=== PATIENT | female | born 1940 | race Two or more races ===

== ENCOUNTER 2017-07-06 10:40 | Emergency (ER) | payer OTHER ==
[2017-07-06] MEDS ORDERED: METOCLOPRAMIDE HCL INJECTION 10 MG/2 ML VIAL IVPB ONE (11:04)
[2017-07-06] MEDS ORDERED: SODIUM CHLORIDE 0.9% 1000 ML INFUS.BAG IV ONE (11:04)
[2017-07-06 11:07] VITALS: BP 121/67; PULSE 92; TEMP 97.7; BMI 20.5
--- NOTE | 2017-07-06 11:45 | PDOC ---
History of Present Illness <Oralia Lizarraga - Last Filed: 07/06/17 14:08> - General History Source: Patient Exam Limitations: No Limitations - History of Present Illness Initial Comments: 07/06/17 11:44 77 yo F with h/o cleft palate ( unrepaired ) her today c/o persistant headache, and electrice like facial pain. pt states was seen in emergency room earlier this year for same few months ago. was evaluted wt ct head. also has seen nuerologist dr. Tay, and had oupt mri. 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 she was treated for migraines <Radha Santoyo - Last Filed: 07/06/17 14:17> - General Chief Complaint: Headache Stated Complaint: HEADACHE Time Seen by Provider: 07/06/17 10:51 Past History <Oralia Lizarraga - Last Filed: 07/06/17 14:08> - Past Medical History Diabetes: Yes HTN: Yes Hypercholesterolemia: Yes Other medical history: SINUSITIS, CLEFT PALATE, CHIARI MALFORMATION - Psycho/Social/Smoking Cessation Hx Suicidal Ideation: No Smoking History: Never smoked Information on smoking cessation initiated: No Hx Alcohol Use: No Drug/Substance Use Hx: No <Radha Santoyo - Last Filed: 07/06/17 14:17> - Past Medical History Allergies/Adverse Reactions: Allergies Allergy/AdvReac Type Severity Reaction Status Date / Time No Known Allergies Allergy Verified 07/06/17 10:43 Home Medications: Ambulatory Orders Protriptyline HCl 10 mg PO DAILY 01/02/16 Rosuvastatin [Crestor -] 40 mg PO DAILY 01/02/16 Linagliptin/Metformin HCl [Jentadueto 2.5 mg-1000 mg Tab] 1 each PO DAILY Lisinopril [Zestril] 2.5 mg PO DAILY 07/06/17 *Physical Exam - Vital Signs Last Vital Signs Temp Pulse Resp BP Pulse Ox 97.7 F 92 H 18 121/67 96 07/06/17 10:40 07/06/17 10:40 07/06/17 10:40 07/06/17 10:40 07/06/17 10:40 <Oralia Lizarraga - Last Filed: 07/06/17 14:08> - Vital Signs Last Vital Signs Temp Pulse Resp BP Pulse Ox 97.7 F 92 H 18 121/67 96 07/06/17 10:40 07/06/17 10:40 07/06/17 10:40 07/06/17 10:40 07/06/17 10:40 <Radha Santoyo - Last Filed: 07/06/17 14:17> ED Treatment Course - LABORATORY CBC & Chemistry Diagram: 07/06/17 11:15 07/06/17 11:15 - ADDITIONAL ORDERS Additional order review: Laboratory Results 07/06/17 11:15 Sodium 134 L Potassium 3.8 Chloride 99 Carbon Dioxide 26 Anion Gap 9 BUN 12 Creatinine 0.8 Creat Clearance w eGFR > 60 Random Glucose 142 H Calcium 10.2 Total Bilirubin 0.8 AST 22 ALT 14 Alkaline Phosphatase 66 Total Protein 7.9 Albumin 4.4 07/06/17 11:15 RBC 4.71 MCV 85.5 MCHC 32.9 RDW 12.4 MPV 9.5 Neutrophils % 62.5 Lymphocytes % 25.0 Monocytes % 9.1 Eosinophils % 0.7 Basophils % 2.7 H - Medications Given in the ED: ED Medications Discontinued Medications Generic Name Dose Route Start Last Admin Trade Name Freq PRN Reason Stop Dose Admin Metoclopramide HCl 10 mg 07/06/17 11:04 07/06/17 11:20 Reglan Injection - IVPB 07/06/17 11:05 10 mg ONCE ONE Administration Sodium Chloride 1,000 ml 07/06/17 11:04 07/06/17 11:20 Normal Saline - IV 07/06/17 11:05 1,000 ml ONCE ONE Administration <Oralia Lizarraga - Last Filed: 07/06/17 14:08> - LABORATORY CBC & Chemistry Diagram: 07/06/17 11:15 07/06/17 11:15 - Medications Given in the ED: ED Medications Discontinued Medications Generic Name Dose Route Start Last Admin Trade Name Freq PRN Reason Stop Dose Admin Metoclopramide HCl 10 mg 07/06/17 11:04 07/06/17 11:20 Reglan Injection - IVPB 07/06/17 11:05 10 mg ONCE ONE Administration Sodium Chloride 1,000 ml 07/06/17 11:04 07/06/17 11:20 Normal Saline - IV 07/06/17 11:05 1,000 ml ONCE ONE Administration <Radha Santoyo - Last Filed: 07/06/17 14:17> Medical Decision Making - Medical Decision Making 07/06/17 14:08 Dr. Tay was called at the office at this time to discuss patient medication. <Oralia Lizarraga - Last Filed: 07/06/17 14:08> - Medical Decision Making 07/06/17 13:34 d/w pt regarding finding of her MRI regarding Chiari I. pt is having sxs of headache and dizziness. however d/w Dr Tay, believes pt sxs are more related to migraines as opposed to CHiari I as they are fluctuating and present mostly when she has migraines, , and improved over the years while taking her migraine medications. pt is not currently taking her medications as she ran out , did not realize she had refills. she has followup scheduled with DR Tay 08/12 12:30 pm. pt given copy of her labs results. and MRI results. <Radha Santoyo - Last Filed: 07/06/17 14:17> *DC/Admit/Observation/Transfer <Oralia Lizarraga - Last Filed: 07/06/17 14:08> <Radha Santoyo - Last Filed: 07/06/17 14:17> Diagnosis at time of Disposition: Headache, Trigeminal neuralgia of right side of face - Discharge Dispostion Disposition: HOME Condition at time of disposition: Stable - Referrals Referrals: Andres Tay MD [Staff Physician] - - Patient Instructions Printed Discharge Instructions: Migraine -- Adult, Trigeminal Neuralgia, DI for Trigeminal Neuralgia Additional Instructions: you are to follow up with Dr Tay as scheduled for August 12 at 12:30. you can call to move appointment should you so choose. you should resume your prescribed medications for your migraines. DR Tay has reassured that you have refills in the pharmacy. return for any worsening symptoms or concerns. you should continue taking Nadalol 40mg daily, which dr tay will send to the pharmacy. and protryptilline 10 mg each evening.
[2017-07-06 11:49] LABS: BASOPHIL 2.7 % (0-2.0); EOSINOPHIL 0.7 % (0-4.5); MCH 28.1 pg (25.7-33.7); MCHC 32.9 g/dl (32.0-36.0); MEAN CELL VOLUME 85.5 fl (80-96); MEAN PLT VOLUME 9.5 fl (7.5-11.1); NEUTROPHILS 62.5 % (42.8-82.8); PLATELET COUNT 266 K/MM3 (134-434); RDW 12.4 % (11.6-15.6)
[2017-07-06 11:54] LABS: ALBUMIN 4.4 g/dl (3.5-5.0); ALK PHOS 66 U/L (32-92); ANION GAP 9 (8-16); BILIRUBIN,TOTAL 0.8 mg/dl (0.2-1.0); CALCIUM 10.2 mg/dl (8.4-10.2); CO2 26 mmol/L (22-28); CREATININE 0.8 mg/dl (0.6-1.3); GLUCOSE,RANDOM 142 mg/dl (74-106); SGOT/AST 22 U/L (10-42); SGPT/ALT 14 U/L (10-40); TOT PROT 7.9 g/dl (6.4-8.3)
== END 2017-07-06 14:40 | disposition home or self-care (01) ==
LOC: FER 10:40
PROC: 3E033GC Introduction of Other Therapeutic Substance into Peripheral Vein, Percutaneous Approach (ICD-10-PCS; principal; 2017-07-06)
PROC: 3E0337Z Introduction of Electrolytic and Water Balance Substance into Peripheral Vein, Percutaneous Approach (ICD-10-PCS; 2017-07-06)
DX: G50.0 Trigeminal neuralgia (principal)
CPT/HCPCS: 36415; 80053; 85025; 96374; 99283-25

== ENCOUNTER 2017-10-06 09:45 | Day surgery (SDC) | payer OTHER ==
[2017-10-05 20:35] VITALS: BMI 19.6
[~2017-10-06 09:45] MED LIST: ACETAMINOPHEN 325 MG TABLET (FP) PO PRN; CIPROFLOXACIN HCL 0.3% OPHTH 2.5ML BOTTLE OP SCH; CYCLOPENTOLATE HCL 1% OPHTH SOLN 2 ML BOTTLE OP SCH; FLURBIPROFEN 0.03% OPHTH SOLN 2.5 ML BOTTLE OP SCH; PHENYLEPHRINE 2.5% OPHTH SOLN 15 ML BOTTLE OP SCH; TROPICAMIDE 1% OPHTH SOLN 15 ML BOTTLE OP SCH; VANCOMYCIN 500 MG VIAL (RESTRICTED TO ID ONLY) IVPB ONE
[2017-10-06] MEDS ORDERED: CYCLOPENTOLATE HCL 1% OPHTH SOLN 2 ML BOTTLE ONE (10:08)
[2017-10-06] MEDS ORDERED: CIPROFLOXACIN 0.3% EYE DROPS 5 ML BOTTLE ONE (10:08)
[2017-10-06] MEDS ORDERED: PHENYLEPHRINE 2.5% OPHTH SOLN 15 ML BOTTLE ONE (10:08)
[2017-10-06] MEDS ORDERED: FLURBIPROFEN 0.03% OPHTH SOLN 2.5 ML BOTTLE ONE (10:08)
[2017-10-06 10:36] VITALS: TEMP 97.5
[2017-10-06] MEDS ORDERED: TROPICAMIDE 1% OPHTH SOLN 15 ML BOTTLE ONE (11:25)
[2017-10-06] MEDS ORDERED: BUPIVACAINE HCL/PF 0.75% 10 ML VIAL RB ONE (13:12)
[2017-10-06] MEDS ORDERED: LIDOCAINE HCL/PF 2% SDV 5ML VIAL INF ONE (13:12)
[2017-10-06] MEDS ORDERED: POVIDONE-IODINE 5% OPHTHALMIC PREP 30 ML SOLUTION OS ONE (13:14)
[2017-10-06] MEDS ORDERED: LIDOCAINE HCL 1% PRESERVATIVE FREE - 30ML VIAL IO ONE (13:22)
[2017-10-06] MEDS ORDERED: CHONDROITIN SU A/HYALUR SOD 1 KIT IO ONE (13:26)
[2017-10-06] MEDS ORDERED: EPINEPHrine/PF 1 MG/1 ML (1:1,000) AMPULE IO ONE (13:29)
[2017-10-06 15:11] VITALS: BP 119/71; PULSE 67
--- NOTE | 2017-10-07 12:01 | SPEC ---
DATE OF OPERATION: 10/06/2017 PREOPERATIVE DIAGNOSIS: Cataract, left eye. POSTOPERATIVE DIAGNOSIS: Cataract, left eye. PROCEDURE: Phacoemulsification of left cataract with posterior chamber intraocular lens implantation. The lens used was [id number], 23.0 diopter power, serial number [id number]. SURGEON: Joe Banks MD ANESTHESIA: Peribulbar/modified van Lint/MAC. COMPLICATIONS: None. PROCEDURE: The patient was brought to the operating room and correctly identified along with the operative site and a correct intraocular lens maddox. The patient was then given a peribulbar block under sedation with 5 mL of a 1:1 mixture of 2% Lidocaine and 0.5% Bupivacaine. Two to 3 mL of the same mixture was given as a modified Van Lint block. The eye was then prepped and draped in the usual sterile fashion including 5% Betadine solution in the conjunctival sac and an eyelid drape. An eyelid speculum was then placed into the eye. A paracentesis port was created. Viscoelastic was injected to inflate the anterior chamber. A temporal clear corneal wound was created. A continuous circular capsulorrhexis was performed. The nucleus was then hydro-dissected and removed phacoemulsification via the [id number] approach. The remaining cortical material was irrigated and aspirated from the eye. Viscoelastic was injected to inflate the capsular bag. The lens was injected into the capsular bag. Viscoelastic was then irrigated and aspirated from the eye. The intraocular lens was noted to be well centered and covered by the anterior capsular border. All wounds were found to be watertight. Topical Vancomycin was given. The eye patch and shield were placed. The patient was discharged from the operating room in stable condition. JOE BANKS M.D. [id number]
== END 2017-10-06 15:12 | disposition home or self-care (01) ==
LOC: JASU-SURG 09:45
PROVIDERS: ATTEND Ophthalmology
PROC: 08RK3JZ Replacement of Left Lens with Synthetic Substitute, Percutaneous Approach (ICD-10-PCS; principal; 2017-10-06 12:00)
DX: H26.9 Unspecified cataract (principal)

== ENCOUNTER 2019-02-01 09:23 | Day surgery (SDC) | payer OTHER ==
[2019-01-31 15:52] VITALS: BMI 21.1
[~2019-02-01 09:23] MED LIST changes: -CIPROFLOXACIN HCL 0.3% OPHTH 2.5ML BOTTLE OP SCH; -FLURBIPROFEN 0.03% OPHTH SOLN 2.5 ML BOTTLE OP SCH; +KETOROLAC TROMETHAMINE 0.5% EYE DROP 1 DROP DROPS OP SCH; +OFLOXACIN 0.3% OPHTHALMIC SOLUTION 5 ML BOTTLE OP SCH; -VANCOMYCIN 500 MG VIAL (RESTRICTED TO ID ONLY) IVPB ONE
[2019-02-01] MEDS ORDERED: OFLOXACIN 0.3% OPHTHALMIC SOLUTION 5 ML BOTTLE ONE (09:37)
[2019-02-01] MEDS ORDERED: PHENYLEPHRINE 2.5% OPHTH SOLN 15 ML BOTTLE ONE (09:37)
[2019-02-01] MEDS ORDERED: CYCLOPENTOLATE HCL 1% OPHTH SOLN 2 ML BOTTLE ONE (09:37)
[2019-02-01] MEDS ORDERED: TROPICAMIDE 1% OPHTH SOLN 15 ML BOTTLE ONE (09:38)
[2019-02-01] MEDS ORDERED: KETOROLAC TROMETHAMINE 0.5% EYE DROP 1 DROP DROPS ONE (09:38)
[2019-02-01 10:00] VITALS: TEMP 97.7
[2019-02-01] MEDS ORDERED: PROPOFOL 20 ML ONE (10:47)
[2019-02-01] MEDS ORDERED: BUPIVACAINE HCL/PF 0.75% 10 ML VIAL NR ONE (10:57)
[2019-02-01] MEDS ORDERED: LIDOCAINE HCL/PF 2% SDV 5ML VIAL INF ONE (10:57)
[2019-02-01] MEDS ORDERED: POVIDONE-IODINE 5% OPHTHALMIC PREP 30 ML SOLUTION OD ONE (11:01)
[2019-02-01] MEDS ORDERED: CHONDROITIN SU A/HYALUR SOD 1 KIT IO ONE (11:07)
[2019-02-01] MEDS ORDERED: LIDOCAINE HCL 1% PRESERVATIVE FREE - 30ML VIAL IO ONE (11:07)
[2019-02-01] MEDS ORDERED: BSS (NA/CA/MG/K) BALANCED SALT SOLUTION OPHTH SOLN 15 ML BOTTLE OD ONE (11:07)
[2019-02-01] MEDS ORDERED: EPINEPHrine/PF 1 MG/1 ML (1:1,000) AMPULE SQ ONE (11:12)
[2019-02-01 12:05] VITALS: PULSE 65
--- NOTE | 2019-02-01 12:07 | OP ---
DATE OF OPERATION: 02/01/2019 SURGEON: Joe Banks M.D. PREOPERATIVE DIAGNOSIS: Cataract, right eye. POSTOPERATIVE DIAGNOSIS: Cataract, right eye. OPERATION: Phacoemulsification of right cataract with posterior chamber intraocular lens implantation. The lens used [id number], 22.5 diopter power, serial No. [id number]. ANESTHESIA: Peribulbar/Modified Van Lint/MAC. COMPLICATIONS: None. PROCEDURE: The patient was brought into the operating room and correctly identified along with the operative site as well as correct intraocular lens maddox. She was then given a peribulbar block under sedation with 5 mL of a 1:1 mixture of 2% Lidocaine and 0.75% Bupivacaine. One mL of the same mixture was given as a modified Van Lint eyelid block. The patient was then prepped and draped in the usual sterile fashion including 5% Betadine solution in the conjunctival sac and an eyelid drape. An eyelid speculum was then placed into the right eye. A paracentesis port was created, and 0.5 mL of 1% preservative-free Lidocaine was given intracamerally. Viscoelastic was injected to inflate the anterior chamber, and a temporal clear corneal wound was created. A continuous circular capsulorrhexis was performed, and the nucleus was then hydro-dissected with BSS. Phacoemulsification was performed with the cataract, and the cataract was noted to be dense. As the cataract was being removed in the quadrant mode, care was made to irrigate the clear corneal wound with BSS. However, at the end of the last quadrant removal, a small corneal burn was noted in the roof of the corneal wound. Viscoelastic was injected to inflate the capsular bag. The lens was injected into the capsular bag. The wounds were then stromal hydrated and irrigation aspiration of the viscoelastic was then performed. At the end, BSS was used to inflate the anterior chamber, and the anterior chamber was noted to be stable, however, with minimal pressure on the temporal clear corneal wound, egress of BSS was noted. Decision was then made to place a single 10-0 nylon suture. After this was placed, no leakage was noted with any pressure. The intraocular lens was noted to be well centered and covered by the anterior capsular border. No further suture was placed. Topical vancomycin and Betadine given, and the patients eye was patched and shielded, and patient was discharged from the operating room in stable condition. JOE BANKS M.D. [id number]
[2019-02-01 13:13] VITALS: BP 130/60
== END 2019-02-01 12:25 | disposition home or self-care (01) ==
LOC: JASU-SURG 09:23
PROVIDERS: ATTEND Ophthalmology
PROC: 08RJ3JZ Replacement of Right Lens with Synthetic Substitute, Percutaneous Approach (ICD-10-PCS; principal; 2019-02-01 11:00)
DX: H26.9 Unspecified cataract (principal)
CPT/HCPCS: 82962

== ENCOUNTER 2020-12-04 04:41 | Day surgery (SDC) | payer OTHER ==
[2020-12-03 09:59] VITALS: BMI 22.4
[2020-12-04] MEDS ORDERED: BUPIVACAINE HCL/PF 0.75% 10 ML VIAL ONE (08:43)
[2020-12-04] MEDS ORDERED: IOHEXOL 180 MG/1 ML ML IJ ONE (08:55)
[2020-12-04] MEDS ORDERED: LIDOCAINE HCL 1%, 10 MG/ML (20ML VIAL) PNB ONE (08:55)
[2020-12-04] MEDS ORDERED: BUPIVACAINE HCL/PF 0.75% 10 ML VIAL PNB ONE (08:55)
[2020-12-04 09:18] VITALS: BP 117/72; PULSE 86; TEMP 98.1
== END 2020-12-04 10:51 | disposition home or self-care (01) ==
LOC: JASU-SURG 04:41
PROVIDERS: ATTEND Pain Medicine Pain Medicine
PROC: 3E0R3BZ Introduction of Anesthetic Agent into Spinal Canal, Percutaneous Approach (ICD-10-PCS; 2020-12-04)
PROC: 3E0R33Z Introduction of Anti-inflammatory into Spinal Canal, Percutaneous Approach (ICD-10-PCS; principal; 2020-12-04 08:30)
DX: M47.816 Spondylosis without myelopathy or radiculopathy, lumbar region (principal)
CPT/HCPCS: 76000-TC-FY

== ENCOUNTER 2020-12-20 04:23 | Day surgery (SDC) | payer OTHER ==
[2020-12-18 09:13] VITALS: BMI 22.4
[2020-12-20] MEDS ORDERED: LIDOCAINE 1% P/F 10 MG/ML VIAL INF ONE ×2 (12:24)
[2020-12-20] MEDS ORDERED: IOHEXOL 180 MG/1 ML ML IJ ONE ×2 (12:24)
[2020-12-20] MEDS ORDERED: BUPIVACAINE HCL/PF 0.75% 10 ML VIAL CAUD ONE (12:24)
[2020-12-20 13:41] VITALS: BP 134/72; PULSE 74; TEMP 97.9
== END 2020-12-20 13:35 | disposition home or self-care (01) ==
LOC: JASU-SURG 04:23
PROVIDERS: ATTEND Pain Medicine Pain Medicine
PROC: BR16YZZ Fluoroscopy of Lumbar Facet Joint(s) using Other Contrast (ICD-10-PCS; 2020-12-20)
PROC: 3E0T3BZ Introduction of Anesthetic Agent into Peripheral Nerves and Plexi, Percutaneous Approach (ICD-10-PCS; principal; 2020-12-20 11:00)
DX: M47.816 Spondylosis without myelopathy or radiculopathy, lumbar region (principal)
CPT/HCPCS: 76000-TC-FY

== ENCOUNTER 2021-07-09 10:54 | Observation (INO) | payer OTHER ==
[2021-07-09 11:05] VITALS: BMI 21.7
[2021-07-09] MEDS ORDERED: ASPIRIN 325 MG ENTERIC COATED TABLET (FP) PO ONE (12:09)
[2021-07-09] MEDS ORDERED: ASPIRIN 81 MG CHEWABLE TABLETS ONE (12:21)
[2021-07-09 12:44] LABS: BASO % 0.4 % (0-2.0); EOS % 0.3 % (0-4.5); HEMATOCRIT 40.1 % (32.4-45.2); HEMOGLOBIN 13.4 GM/dL (10.7-15.3); LYMPH % 18.9 % (8-40); MCH 29.1 pg (25.7-33.7); MCHC 33.4 g/dl (32.0-36.0); MEAN CELL VOLUME 87.3 fl (80-96); MEAN PLT VOLUME 8.5 fl (7.5-11.1); MONO % 6.8 % (3.8-10.2); NEUT % 73.6 % (42.8-82.8); PLATELET COUNT 269 10^3/uL (134-434); RBC 4.59 M/mm3 (3.60-5.2); RDW 14.4 % (11.6-15.6); WHITE BLOOD COUNT 6.9 K/mm3 (4.0-10.0)
[2021-07-09 13:10] LABS: CHLORIDE 108 mmol/L (98-107); SODIUM 141 mmol/L (136-145)
[2021-07-09 13:12] LABS: CALCIUM 9.8 mg/dL (8.5-10.1)
[2021-07-09 13:13] LABS: ALBUMIN 3.9 g/dl (3.4-5.0); ANION GAP 6 MMOL/L (8-16); BLOOD UREA NITROGEN 17.4 mg/dL (7-18); CO2 27 mmol/L (21-32); GLUCOSE,RANDOM 124 mg/dL (74-106)
[2021-07-09 13:16] LABS: CREATININE 0.8 mg/dL (0.55-1.3); SGOT/AST 13 U/L (15-37); SGPT/ALT 17 U/L (13-61)
[2021-07-09 13:18] LABS: BILIRUBIN,TOTAL 0.5 mg/dL (0.2-1); TOT PROT 7.8 g/dl (6.4-8.2)
[2021-07-09 13:19] LABS: ALK PHOS 85 U/L (45-117)
[2021-07-09] MEDS ORDERED: NITROGLYCERIN SUBLINGUAL 1/150 0.4 MG TAB SL PRN (14:07)
[2021-07-09] MEDS ORDERED: ROSUVASTATIN CA 40 MG TABLET PO ONE (14:30)
[2021-07-09] MEDS ORDERED: ATORVASTATIN CA 40 MG TABLET (FP) ONE (15:46)
[2021-07-09 17:33] LABS: CHOLESTEROL 253 mg/dL (50-200); TRIGLYCERIDES 106 mg/dL (0-150)
[2021-07-09 17:34] LABS: LDL CHOLESTEROL (ONLY SJRH) 165 mg/dL (5-100)
[2021-07-09 17:35] LABS: HDL CHOLESTEROL 63 mg/dL (40-60)
[2021-07-09 17:37] LABS: N-TERMINAL BNP 46.7 pg/ml (5-450)
[2021-07-09] MEDS: INSULIN SLIDING SCALE (NOVOLOG) 1 VIAL SQ SCH (21:08)
[2021-07-10 06:29] LABS: BASO % 0.3 % (0-2.0); EOS % 1.6 % (0-4.5); HEMOGLOBIN 13.5 GM/dL (10.7-15.3); LYMPH % 32.6 % (8-40); MCH 29.1 pg (25.7-33.7); MEAN CELL VOLUME 88.2 fl (80-96); MEAN PLT VOLUME 9.1 fl (7.5-11.1); MONO % 9.9 % (3.8-10.2); NEUT % 55.6 % (42.8-82.8); PLATELET COUNT 258 10^3/uL (134-434); RBC 4.65 M/mm3 (3.60-5.2); RDW 14.5 % (11.6-15.6); WHITE BLOOD COUNT 5.8 K/mm3 (4.0-10.0)
[2021-07-10 06:43] LABS: CALCIUM 8.8 mg/dL (8.5-10.1)
[2021-07-10 06:44] LABS: ALBUMIN 3.8 g/dl (3.4-5.0); BLOOD UREA NITROGEN 12.5 mg/dL (7-18); MAGNESIUM 2.4 mg/dL (1.8-2.4)
[2021-07-10 06:47] LABS: CREATININE 0.8 mg/dL (0.55-1.3)
[2021-07-10 06:48] LABS: BILIRUBIN,TOTAL 0.8 mg/dL (0.2-1); TOT PROT 7.5 g/dl (6.4-8.2)
[2021-07-10] MEDS ORDERED: sitaGLIPtin PHOSPHATE 50 MG TABLET PO SCH (07:00)
[2021-07-10] MEDS ORDERED: ASPIRIN 81 MG CHEWABLE TABLETS PO SCH (10:00)
[2021-07-10] MEDS ORDERED: LISINOPRIL 10 MG TABLET PO SCH (10:00)
[2021-07-10] MEDS ORDERED: ASPIRIN 81 MG CHEWABLE TABLETS ONE (10:32)
[2021-07-10] MEDS ORDERED: LISINOPRIL 5 MG TABLET ONE (10:33)
[2021-07-10] MEDS ORDERED: sitaGLIPtin PHOSPHATE 50 MG TABLET ONE (10:33)
[2021-07-10] MEDS: INSULIN SLIDING SCALE (NOVOLOG) 1 VIAL SQ SCH ×2 (11:11→11:48)
[2021-07-10 14:09] VITALS: BP 106/67; PULSE 84; TEMP 97.9
== END 2021-07-10 15:00 | disposition home or self-care (01) ==
LOC: JER 10:54 → UNDOADMOB 14:49 → JERBED 14:49 → INTOOBSV 14:49 → JERBED 07-10 08:26
PROVIDERS: ADMIT Internal Medicine; ATTEND Internal Medicine
PROC: 3E013VG Introduction of Insulin into Subcutaneous Tissue, Percutaneous Approach (ICD-10-PCS; principal; 2021-07-10)
DX: R07.89 Other chest pain (principal); I10 Essential (primary) hypertension; E78.5 Hyperlipidemia, unspecified; E11.9 Type 2 diabetes mellitus without complications; Z79.84 Long term (current) use of oral hypoglycemic drugs; Z79.82 Long term (current) use of aspirin; Z79.4 Long term (current) use of insulin
CPT/HCPCS: 36415; 71045-TC-FY; 80053; 80061; 82550; 82962; 83036; 83735; 83880; 84443; 84484; 85025; 93005; 93010; 93306-TC; 96372; 99285-25; C9803; G0378; U0003; U0005